=== PATIENT | female | born 1970 | race Caucasian/White ===

== ENCOUNTER 2024-05-25 08:50 | Day surgery (SDC) | payer OTHER ==
[2024-05-25] VITALS (14 sets, daily range): BP systolic 111–147; BP diastolic 74–98
[~2024-05-25] VITALS: Ht 170.2 cm; Wt 83.2 kg
[~2024-05-25 08:50] MED LIST: AZELASTINE137 MCG/01; Lactated Ringer's 1,000 ML IV SCH; ZOCOR20 MG PO
--- NOTE | 2024-05-25 10:41 | NUR ---
05/25/24 1041 Lala Jimenez CONFIRMED AND REVIEWED H&P, MEDCICATIONS, ALLERGIES, MEDICAL HISTORY, RESPIRATORY HISTORY, VITAL SIGNS, 3-LEAD EKG, CONSENTS, AND PHYSICIAN ORDERS. PATIENT CONFIRMS NPO STATUS AND AGREES WITH SCHEDULED PROCEDURE. MONITOR INTACT WITH CONTINUOUS PULSE OXIMETRY, CAPNOGRAPHY, 3-LEAD EKG, INTERMITTENT BP. SUPPLEMENTAL O2 TO BE TITRATED THROUGHOUT PROCEDURE TO MAINTAIN O2 SATURATION ABOVE 90%. PATIENT DETERMINED TO BE ASA APPROPRIATE FOR PROPOFOL SEDATION PRIOR TO START OF PROCEDURE BY DR. STODDARD
[2024-05-25] MEDS ORDERED: propofoL 40 ML IV ONE (10:45)
--- NOTE | 2024-05-25 11:27 | NUR ---
REPORT RECEIVED FROM DAMIEN SOLANO. VSS. PT ON RA. PT ABLE TO REPOSITION SELF IN BED. PT REQUESTING PO FLUIDS AND TOLERATING THEM WELL. PT DENIES PAIN, NAUSEA OR OTHER DISCOMFORTS.
== END 2024-05-25 11:48 | disposition home or self-care (01) ==
LOC: ORSCMMR 08:50 → ORD 10:00 → ORSCMMR 11:48
PROVIDERS: Internal Medicine Gastroenterology
PROC: 0DBM8ZX Excision of Descending Colon, Via Natural or Artificial Opening Endoscopic, Diagnostic (ICD-10-PCS; principal; 2024-05-25 10:00)
DX: Z12.11 Encounter for screening for malignant neoplasm of colon (principal); Z86.0100 Personal history of colon polyps, unspecified; D12.4 Benign neoplasm of descending colon; E78.00 Pure hypercholesterolemia, unspecified; Z79.899 Other long term (current) drug therapy
CPT/HCPCS: 88305; J2704; J7120

== ENCOUNTER 2024-05-31 07:52 | Day surgery (SDC) | payer OTHER ==
[~2024-05-31] VITALS: Ht 170.2 cm; Wt 83.4 kg
[~2024-05-31 07:52] MED LIST changes: -Lactated Ringer's 1,000 ML IV SCH; +Lidocaine 2%-Epineph 1:200000 20 ML SDV ONE
[2024-05-31] MEDS ORDERED: Midazolam HCl 1MG / ML 2ML Vial ONE (08:31)
[2024-05-31] MEDS ORDERED: propofoL 20 ML IV ONE (08:31)
[2024-05-31] MEDS ORDERED: FentaNYL Citrate 50 MCG/ML 2 ML Injection ONE (08:31)
[2024-05-31] MEDS ORDERED: Lactated Ringer's 1,000 ML IV ONE (08:35)
[2024-05-31] MEDS ORDERED: EPINEPhrine HCl 1 MG / ML 30ML Vial ONE (09:09)
[2024-05-31] MEDS ORDERED: Ondansetron HCl 2 MG / ML 2ML Vial ONE (09:16)
[2024-05-31] MEDS ORDERED: Dexamethasone Sod Phos 10 MG/ML 1ML VIAL ONE (09:16)
[2024-05-31] MEDS ORDERED: Rocuronium Bromide 10 MG/ML 5ML Injection IV ONE (09:16)
[2024-05-31] MEDS ORDERED: Sugammadex Sodium 200 MG/2ML SDV (100 MG/ML) ONE (10:05)
[2024-05-31 10:49] VITALS: BP 143/87
== END 2024-05-31 11:55 | disposition home or self-care (01) ==
LOC: ORSCSDS 07:52
DX: J34.2 Deviated nasal septum (principal); J34.3 Hypertrophy of nasal turbinates; I10 Essential (primary) hypertension; E78.5 Hyperlipidemia, unspecified; Z79.899 Other long term (current) drug therapy
CPT/HCPCS: J0171; J1100; J2250; J2405; J2704; J3010; J7120

== ENCOUNTER → 2024-08-17 | Outpatient (CLI) | payer OTHER ==
[~2024-08-17] MED LIST changes: -Lidocaine 2%-Epineph 1:200000 20 ML SDV ONE
[2024-08-23 04:35] LABS: HPV HIGH RISK BY TMA Not Detected; HPV SOURCE Cervical
== END ==
LOC: LAB 18:06 → LAB SHORT 18:06
PROVIDERS: Family Medicine
DX: Z01.419 Encounter for gynecological examination (general) (routine) without abnormal findings (principal)
CPT/HCPCS: 87624; G0123